=== PATIENT | female | born 1945 | race Caucasian/White ===

== ENCOUNTER → 2017-11-14 | Outpatient (CLI) | payer OTHER ==
[~2017-11-14] MED LIST: ALENDRONATE SOD70 MG PO; ALEVE220 MG PO; ASPIR 8181 MG PO; ASPIRIN325 PO; COLACE100 MG PO; HYDROCODONE-AP1 EAC6 PO; MOBIC15 MG PO; NEURONTIN 300300 M1 PO; NORVASC 5 MG TAB5 MG PO; OXYCODONE HCL 55 MG PO; SORINE 80 MG TA80 M1 PO; TUMS PO; VITAMIN D2000 UNI1 PO; XARELTO10 MG PO; ZOLOFT100 MG PO
== END ==
LOC: M.RAD 10:00
DX: Z12.31 Encounter for screening mammogram for malignant neoplasm of breast (principal); I10 Essential (primary) hypertension

== ENCOUNTER → 2018-11-13 | Outpatient (CLI) | payer OTHER | LOC: M.RAD 07:38 → M.MRI 07:38 | DX: Z12.31 Encounter for screening mammogram for malignant neoplasm of breast (principal); M47.26 Other spondylosis with radiculopathy, lumbar region; M48.062 Spinal stenosis, lumbar region with neurogenic claudication; M51.16 Intervertebral disc disorders with radiculopathy, lumbar region; M48.07 Spinal stenosis, lumbosacral region; N28.1 Cyst of kidney, acquired ==

== ENCOUNTER → 2018-12-06 | Outpatient (CLI) | payer OTHER | LOC: M.RAD 11-14 10:00 → M.ULTRA 11-19 09:00 | DX: N63.10 Unspecified lump in the right breast, unspecified quadrant (principal) ==

== ENCOUNTER → 2019-10-10 | Outpatient (CLI) | payer OTHER | LOC: M.ULTRA 08:53 | PROVIDERS: ATTEND Internal Medicine | DX: N28.1 Cyst of kidney, acquired (principal) ==

== ENCOUNTER → 2020-04-02 | Outpatient (CLI) | payer OTHER | LOC: M.RAD 09:35 | PROVIDERS: ATTEND Family Medicine | DX: Z12.31 Encounter for screening mammogram for malignant neoplasm of breast (principal) ==